=== PATIENT | female | born 1965 | race Caucasian/White ===

== ENCOUNTER 2020-02-20 16:08 | Outpatient (CLI) | payer BC, SELFPAY ==
--- NOTE | ~2020-02-20 | MM_ITS ---
EXAMINATION: MM screening marcela BI w tracy HISTORY: Screening mammogram TECHNIQUE: Craniocaudal and mediolateral oblique 3-D tomosynthesis images were obtained and synthetic 2-D images were generated. CAD analysis was submitted and interpreted. COMPARISON: 01/07/2019, 12/21/2017, 12/09/2016 bilateral digital screening mammogram examinations BREAST PARENCHYMAL COMPOSITION: There are scattered areas of fibroglandular density. FINDINGS: Stable bilateral probable benign appearing intramammary lymph nodes. There is no evidence o f suspicious mass, calcification, or architectural distortion to suggest malignancy in either breast. There has been no suspicious interval change. IMPRESSION: 1. No mammographic evidence of malignancy. 2. Recommend routine screening mammography in one year. BI-RADS Category 2: Benign finding(s). Reviewed, dictated and finalized at location [facility]
== END 2020-02-20 16:09 | disposition home or self-care (01) ==
LOC: ANHIMG 16:14
PROVIDERS: Visit Provider Obstetrics & Gynecology Gynecology
DX: Z12.31 Encounter for screening mammogram for malignant neoplasm of breast (principal)
CPT/HCPCS: 77063; 77067